=== PATIENT | female | born 1965 | race Caucasian/White ===

== ENCOUNTER 2016-08-11 21:00 | Emergency (ER) | payer OTHER ==
[2016-08-11] MEDS ORDERED: METOCLOPRAMIDE HCL 10 MG/2 ML VIAL ONE (22:14)
[2016-08-11] MEDS ORDERED: KETOROLAC TROMETHAMINE 60 MG/2 ML VIAL ONE (22:14)
--- NOTE | 2016-08-12 00:04 | ER NURSING DOCUMENTATION ---
Nurse's Notes [facility] Name:Renita Burton Age:51 yrs Sex:Female :1965 Arrival Date:08/11/2016 Time:21:00 Bed1 Private MD: Diagnosis:Acute Headache;Nausea Presentation: 08/11 21:12 Notified ED Physician of Harsha Perez notified. lb 21:12 Acuity: JONI 3 lb 21:33 Presenting complaint: Patient states: headache, nausea getting worse over past week. lb feels thirsty. Transition of care: patient was not received from another setting of care. 21:33 Method Of Arrival: Walk In Triage Assessment: 21:39 General: Appears ill, Behavior is listless. Pain: Complains of pain in face Pain does lb not radiate. Pain currently is 7 out of 10 on a pain scale. Respiratory: No deficits noted. Airway is patent Trachea midline Respiratory effort is even, unlabored, Respiratory pattern is regular, Breath sounds are clear bilaterally. Reports shortness of breath on exertion since 1 week Onset: The symptoms/episode began/occurred 1 week, the patient has mild shortness of breath. Historical: - Allergies: PENICILLINS; Morphine; Tetracycline; Erythromycin; - Home Meds: 1. gabapentin oral 2. levimir 3. Novolog Sub-Q 4. Metformin Oral 5. Methadone Oral 6. Xanax Oral - PMHx: ANXIETY; Diabetes - IDDM; chronic back pain; - PSHx: c section; abdominal; CRANIOTOMY; - Tetanus: < 10 years. - Ebola Screening: : Patient denies exposure to infectious person. Patient denies travel to an Ebola-affected area in the 21 days before illness onset. . - Immunization history: Flu Vaccine None Flu Vaccine None. - Social history: Smoking status: Patient states was never smoker of tobacco. Patient/guardian denies using alcohol. Screenin:41 Infectious Disease Risk None. Abuse screen: Denies threats or abuse. Denies injuries lb from another. Nutritional screening: No deficits noted. Assessment: 21:41 See Triage Assessment done by same RN. Cardiovascular: No deficits noted. lb 08/12 00:04 Cardiovascular: Rhythm is regular. lb Vital Signs: 08/11 21:40 BP 174 / 89; Pulse 89; Resp 20; Temp 97.2(TE); Pulse Ox 87% on R/A; Weight 77.11 kg; lb Height 5 ft. 4 in. (162.56 cm); Pain 7/10; 23:11 BP 140 / 84; Pulse 82; Resp 16; Pulse Ox 97% on 2 lpm NC; Pain 2/10; lb 08/12 00:02 BP 140 / 81; Pulse 78; Resp 14; Pulse Ox 98% on R/A; Pain 0/10; lb 00:03 BP 140 / 81; Pulse 78; Resp 14; Pulse Ox 98% on R/A; Pain 0/10; lb 08/11 21:40 Body Mass Index 29.18 (77.11 kg, 162.56 cm) lb ED Course: 08/11 21:01 Patient arrived in ED. ma1 21:02 Nima Mcleod MD is Attending Physician. 21:12 Alix Valverde is Primary Nurse. lb 21:13 Triage completed. lb 21:41 Valuables Remains with patient Patient has correct armband on for positive lb identification. Bed in low position. Call light in reach. Side rails up X 1. Administered Medications: 21:59 CANCELLED (Physician Discretion): Benadryl 12.5 mg IVP once 21:59 CANCELLED (Physician Discretion): Reglan 5 mg IVP once; over 1 to 2 minutes 21:59 CANCELLED (Physician Discretion): Toradol 30 mg IVP once 22:03 CANCELLED (Physician Discretion): NS 0.9% 1000 ml IV at bolus once lb 22:15 Drug: Reglan 10 mg; Route: IM; Site: right gluteus; fc 23:12 Follow up: Response: Nausea is decreased lb 22:15 Drug: Toradol 60 mg; Route: IM; Site: right gluteus; fc 23:12 Follow up: Response: Pain is decreased lb 23:56 Drug: Zofran 1 tablet; Route: PO; lb 23:56 Follow up: Response: Pharmacy closed - take home med pack lb Outcome: 23:34 Discharge ordered by . ofe 08/12 00:03 Discharged to home ambulatory. lb Condition: stable Discharge Assessment: Patient awake, alert and oriented x 3. No cognitive and/or functional deficits noted. Patient verbalized understanding of disposition instructions. Instructed on discharge instructions, follow up and referral plans. 00:04 Patient left the ED. lb Signatures: Nima Mcleod MD MD jm collins, floyd fc Bollock, Lynda lb Addison, Melissa ma1
--- NOTE | 2016-08-12 00:04 | ER PHYSICIAN DOCUMENTATION ---
Physician Documentation [facility] Name:Renita Burton Age:51 yrs Sex:Female :1965 Arrival Date:08/11/2016 Time:21:00 Bed1 Private MD: Nima Bernard Disposition: 08/11/16 23:34 Discharged to Home/Self Care. Impression: Acute Headache, Nausea. - Condition is Good. - Discharge Instructions: Altitude - ALTITUDE SICKNESS. - Medical Reconciliation form form. - Follow up: Private Physician; When: As needed; Reason: Continuance of care. - Problem is new. - Symptoms have improved. HPI: 08/11 22:51 This 51 yrs old Female presents to ER via Walk In with complaints of jm Shortness Of Breath, Headache, Nausea. 22:51 The patient complains of pain to the top of head. The patient describes the headache as jm pounding, a pressure. Onset: The symptoms/episode began/occurred today. Associated signs and symptoms: Pertinent positives: nausea, Pertinent negatives: fever, neck stiffness. Severity of symptoms: in the emergency department the pain a " 8" out of "10". the symptoms are aggravated by going up to [facility]. The patient has not experienced similar symptoms in the past. Pt here from and has been feeling lousy for most of the week and decided to go up to [facility] today. She felt awful up there, so much were she was approached by a ranger who said that she should just go back down, but she never really recovered. Her LOUISE got worse, so she came here. . Historical: - Allergies: PENICILLINS; Morphine; Tetracycline; Erythromycin; - Home Meds: 1. gabapentin oral 2. levimir 3. Novolog Sub-Q 4. Metformin Oral 5. Methadone Oral 6. Xanax Oral - PMHx: ANXIETY; Diabetes - IDDM; chronic back pain; - PSHx: c section; abdominal; CRANIOTOMY; - Tetanus: < 10 years. - Ebola Screening: : Patient denies exposure to infectious person. Patient denies travel to an Ebola-affected area in the 21 days before illness onset. . - Immunization history: Flu Vaccine None Flu Vaccine None. - Social history: Smoking status: Patient states was never smoker of tobacco. Patient/guardian denies using alcohol. ROS: 22:55 Constitutional: Positive for fatigue, malaise, Negative for fever. jm 22:55 Eyes: Negative for blurry vision, visual disturbance. 22:55 ENT: Negative for rhinorrhea, sinus congestion, sinus pain, sore throat. 22:55 Neck: Negative for pain with movement, stiffness. 22:55 Respiratory: Positive for shortness of breath. 22:55 Abdomen/GI: Positive for nausea. 22:55 Neuro: Positive for headache, weakness. Exam: 22:55 Constitutional: The patient appears alert, awake. 22:55 Eyes: Periorbital structures: appear normal, Pupils: equal, round, and reactive to light and accomodation, Extraocular movements: intact throughout. 22:55 ENT: Posterior pharynx: is normal, Voice: is normal. 22:55 Neck: Thyroid: appears normal, ROM/movement: is normal, Lymph nodes: no appreciated lymphadenopathy. 22:55 Cardiovascular: Rate: normal, Rhythm: regular. 22:55 Respiratory: Respirations: normal, Breath sounds: are normal. 22:55 Neuro: Mentation: is normal, Memory: is normal, Cranial nerves: CN II- XII are normal as tested, Gait: is steady. Vital Signs: 21:40 BP 174 / 89; Pulse 89; Resp 20; Temp 97.2(TE); Pulse Ox 87% on R/A; Weight 77.11 kg; lb Height 5 ft. 4 in. (162.56 cm); Pain 7/10; 23:11 BP 140 / 84; Pulse 82; Resp 16; Pulse Ox 97% on 2 lpm NC; Pain 2/10; lb 0610 00:02 BP 140 / 81; Pulse 78; Resp 14; Pulse Ox 98% on R/A; Pain 0/10; lb 00:03 BP 140 / 81; Pulse 78; Resp 14; Pulse Ox 98% on R/A; Pain 0/10; lb 09 21:40 Body Mass Index 29.18 (77.11 kg, 162.56 cm) lb Procedures: 08/11 22:57 Peripheral line: by aseptic technique a peripheral line was placed in the right antecubital vein, This failed. . MDM: 21:02 Patient medically screened. 22:56 Differential diagnosis: migraine, tension headache, vasomotor headache, altitude jm related LOUISE. Data reviewed: vital signs, nurses notes, and as a result, I will discharge patient. 23:30 Neurological re-evaluation: normal neurological exam including cranial nerves, jm orientation, mentation, motor and sensory exam, cerebellar testing, GCS normal, and normal gait. Counseling: I had a detailed discussion with the patient and/or guardian regarding: the historical points, exam findings, and any diagnostic results supporting the discharge/admit diagnosis, the need for outpatient follow up, with the patient's primary care provider. Response to treatment: the patient's symptoms have markedly improved after treatment. 08/11 21:13 Order name: Pulse Ox Continuous; Complete Time: 22:00 08/11 21:13 Order name: Oxygen; Complete Time: 21:41 Dispensed Medications: 21:59 CANCELLED (Physician Discretion): Benadryl 12.5 mg IVP once 21:59 CANCELLED (Physician Discretion): Reglan 5 mg IVP once; over 1 to 2 minutes 21:59 CANCELLED (Physician Discretion): Toradol 30 mg IVP once 22:03 CANCELLED (Physician Discretion): NS 0.9% 1000 ml IV at bolus once lb 22:15 Drug: Reglan 10 mg; Route: IM; Site: right gluteus; fc 23:12 Follow up: Response: Nausea is decreased lb 22:15 Drug: Toradol 60 mg; Route: IM; Site: right gluteus; fc 23:12 Follow up: Response: Pain is decreased lb 23:56 Drug: Zofran 1 tablet; Route: PO; lb 23:56 Follow up: Response: Pharmacy closed - take home med pack lb Signatures: Nima Mcleod MD MD jm collins, floyd fc Bollock, Lynda lb
[2016-08-12] MEDS ORDERED: ONDANSETRON ODT PREPAC 4 MG TAB.RAPDIS PO ONE (00:12)
== END 2016-08-12 00:04 | disposition home or self-care (01) ==
LOC: ER 21:00
DX: R51 Headache (principal); R11.0 Nausea; R06.02 Shortness of breath; R53.83 Other fatigue; R53.81 Other malaise; T70.29XA Other effects of high altitude, initial encounter; E10.65 Type 1 diabetes mellitus with hyperglycemia; Z79.899 Other long term (current) drug therapy
CPT/HCPCS: 96372; 99283; J1885; J2765